=== PATIENT | male | born 1960 | race Caucasian/White ===

== ENCOUNTER 2018-01-03 13:51 | Inpatient (IN) | payer OTHER ==
[2018-01-03 16:15] VITALS: BMI 31.8
--- NOTE | 2018-01-03 17:04 | HP ---
"COWS - Scale Resting Pulse: 1= [place] 81-100 Sweatin=Flushed/Facial Moisture Restless Observation: 3= Extraneous Movement Pupil Size: 2= Moderately Dilated Bone or Joint Aches: 1= Mild Discomfort Runny Nose/ Eye Tearin= Nasal Congestion GI Upset > 30mins: 2= Nausea/Diarrhea Tremor Observation: 2= Slight Tremor Visible Yawning Observation: 0= None Anxiety or Irritability: 1=Feels Anxious/Irritable Goose Flesh Skin: 0=Smooth Skin COWS Score: 15 CIWA Score - CIWA Score Nausea/Vomitin-Mild Nausea/No Vomiting Muscle Tremors: 3 Anxiety: 3 Agitation: 1-Slight > Activity Paroxysmal Sweats: 1-Minimal Palms Moist Orientation: 0-Oriented Tacttile Disturbances: 0-None Auditory Disturbances: 0-None Visual Disturbances: 0-None Headache: 2-Mild CIWA-Ar Total Score: 11 Admission ROS BHS - HPI Chief Complaint: I'm starting to have alcohol and heroin withdrawal. Allergies/Adverse Reactions: Allergies Allergy/AdvReac Type Severity Reaction Status Date / Time No Known Allergies Allergy Verified 01/03/18 16:44 History of Present Illness: Here for detox from alcohol, heroin, and cocaine. Alcohol use began at age 31. Cocaine use began at age 21. Heroin use began at age 37. Methadone use began at age 37. Has been buying methadone off street. Last took 2-3 days ago. Previous detox and stayed sober for 2 years. I just relapsed in March 2017. Hx DM, HTN, Asthma Search Terms: Jung Sandip, 1960 Search Date: 01/03/2018 04:56:57 PM The Drug Utilization Report below displays all of the controlled substance prescriptions, if any, that your patient has filled in the last twelve months. The information displayed on this report is compiled from pharmacy submissions to the Department, and accurately reflects the information as submitted by the pharmacies. This report was requested by: Mary Prater | Reference #: [id number] There are no results for the search terms that you entered. Exam Limitations: No Limitations - Ebola screening Have you traveled outside of the country in the last 21 days: No (N) Have you had contact with anyone from an Ebola affected area: No Have you been sick,other than usual withdrawal symptoms: No Do you have a fever: No - Review of Systems Constitutional: Changes in sleep (Difficulty falling asleep. Uses alcohol to fall asleep.) EENT: reports: Blurred Vision (Uses reading glasses), Dental Problems (Occ tooth ache. Chews and swallows okay.) Respiratory: reports: Cough (Occ cough w/ phlegm), SOB with Exertion (W/ starirs ) Cardiac: reports: No Symptoms Reported, Other (HTN - missed meds today) GI: reports: Diarrhea, Nausea : reports: No Symptoms Reported, Other (Has dark urine.) Musculoskeletal: reports: Back Pain (r/t withdrawal) Integumentary: reports: No Symptoms Reported Neuro: reports: Headache (r/t withdrawal and possibly increased B/P) Endocrine: reports: No Symptoms Reported Hematology: reports: No Symptoms Reported Psychiatric: reports: Judgement Intact, Orientated x3, Agitated, Anxious, Depressed (Sadness r/t drug use. Denies thoughts of harming self or others.) Patient History - Patient Medical History Hx Asthma: Yes (Pt is on MDI. Last exacerbatation 1 month (wheezing)) Hx Chronic Obstructive Pulmonary Disease (COPD): No Hx Cancer: No Hx Cardiac Disorders: No Hx Congestive Heart Failure: No Hx Hypertension: Yes (non compliant with meds.) Hx Hypercholesterolemia: No Hx Pacemaker: No HX Cerebrovascular Accident: No Hx Seizures: No Hx Dementia: No Hx Diabetes: Yes (On medications) Hx Gastrointestinal Disorders: No Hx Liver Disease: No Hx Genitourinary Disorders: No Hx Sexually Transmitted Disorders: Yes (Pt has a hx of herpes.) Hx Renal Disease (ESRD): No Hx Thyroid Disease: No Hx Human Immunodeficiency Virus (HIV): No (2015) Hx Hepatitis C: No Hx Depression: Yes (Denies suicide/violent ideation) Hx Suicide Attempt: No Hx Schizophrenia: No - Patient Surgical History Past Surgical History: No - PPD History Previous Implant?: Yes Documented Results: Negative w/o proof Implanted On Prior [facility] Admission?: Yes PPD to be Administered?: Yes - Smoking Cessation Smoking history: Current every day smoker Have you smoked in the past 12 months: Yes Aproximately how many cigarettes per day: 10 Hx Chewing Tobacco Use: No Initiated information on smoking cessation: Yes 'Breaking Loose' booklet given: 01/03/18 - Substance & Tx. History Hx Alcohol Use: Yes Hx Substance Use: Yes Substance Use Type: Alcohol, Cocaine, Heroin, Opiates (Illicit methadone ) Hx Substance Use Treatment: Yes (detox, rehab, long-term, NA) - Substances Abused Heroin Route: Inhalation Frequency: Daily Amount used: 2 bags Age of first use: 37 Date of Last Use: 01/01/18 Cocaine Route: Smoking Frequency: Daily Amount used: $30-40 Age of first use: 21 Date of Last Use: 01/02/18 Alcohol Route: Oral Frequency: Daily Amount used: 2-3 20 oz four locos Age of first use: 31 Date of Last Use: 01/03/18 street methadone Route: Oral Frequency: 3-6 times per week Amount used: 20-30mg Age of first use: 36 Date of Last Use: 12/31/17 Admission Physical Exam S - Vital Signs Vital Signs: Vital Signs - 24 hr 01/03/18 16:12 Temperature 97.6 F Pulse Rate 81 Respiratory 20 Rate Blood Pressure 191/99 H - Physical General Appearance: Yes: Mild Distress, Tremorous, Sweating, Anxious HEENTM: Yes: EOMI, Hearing grossly Normal, Normocephalic, Normal Voice, NGUYỄN ( Pupils 4 mm), Nasal Congestion Respiratory: Yes: No Respiratory Distress, Wheezing ((R) upper inspiratory/ expiratory wheeze.), Other (Noisy cough - productive of thick grayish phlegm) Neck: Yes: No masses,lesions,Nodules, Supple Breast: Yes: Breast Exam Deferred Cardiology: Yes: Regular Rhythm, Regular Rate, S1, S2 Abdominal: Yes: Non Tender, Soft, Increased Bowel Sounds, Protuberent ( Increased abdominal adiposity) Genitourinary: Yes: Within Normal Limits Back: Yes: Normal Inspection Musculoskeletal: Yes: full range of Motion Extremities: Yes: Normal Capillary Refill, Normal Inspection, Normal Range of Motion, Non-Tender, Tremors (Mild tremors of hands) Neurological: Yes: antenna engineer II-XII NML intact, Fully Oriented, Alert, Motor Strength 5/5, Normal Mood/Affect, Normal Response Integumentary: Yes: Normal Color, Dry (Poor skin turgor.), Warm Lymphatic: Yes: Within Normal Limits - Diagnostic (1) Alcohol dependence with uncomplicated withdrawal Current Visit: Yes Status: Acute (2) Opioid dependence with withdrawal Current Visit: Yes Status: Acute (3) Cocaine dependence, uncomplicated Current Visit: Yes Status: Chronic (4) Diabetes Current Visit: Yes Status: Chronic Qualifiers: Diabetes mellitus type: type 2 Diabetes mellitus penitentiary insulin use: without intermediate accountant use Diabetes mellitus complication status: with unspecified complications Qualified Code(s): E11.8 - Type 2 diabetes mellitus with unspecified complications (5) Essential (primary) hypertension Current Visit: Yes Status: Chronic (6) Obesity (BMI 30-39.9) Current Visit: Yes Status: Chronic (7) Asthma Current Visit: Yes Status: Acute Qualifiers: Asthma severity: mild Asthma persistence: intermittent Asthma complication type: with acute exacerbation Qualified Code(s): J45.21 - Mild intermittent asthma with (acute) exacerbation Cleared for Admission BHS - Detox or Rehab S Level of Care: Medically Managed Detox Regimen/Protocol: Methadone/Librium BHS Breath Alcohol Content Breath Alcohol Content: 0 Urine Drug Screen - Results Drug Screen Negative: No Urine Drug Screen Results: THERESE-Cocaine, MTD-Methadone"
[2018-01-03] MEDS ORDERED: MAG HYDROX/AL HYDROX/SIMETH 30 ML UNIT-DOSE CUP PO PRN (17:30)
[2018-01-03] MEDS ORDERED: MAGNESIUM CITRATE 300 ML BOTTLE PO PRN (17:30)
[2018-01-03] MEDS ORDERED: MENTHOL/PHENOL 1 EACH UD MM PRN (17:30)
[2018-01-03] MEDS ORDERED: NICOTINE POLACRILEX 2 MG GUM BC PRN (17:30)
[2018-01-03] MEDS ORDERED: MAGNESIUM HYDROX 2400MG/30ML ORAL SUSPENSION 30 ML CUP PO PRN (17:30)
[2018-01-03] MEDS ORDERED: chlordiazePOXIDE HCL 25 MG CAPSULE PO PRN (17:30)
[2018-01-03] MEDS ORDERED: ACETAMINOPHEN 325 MG TABLET (FP) PO PRN (17:30)
[2018-01-03] MEDS ORDERED: LOPERAMIDE HCL 2 MG CAPSULE PO PRN (17:30)
[2018-01-03] MEDS ORDERED: ALBUTEROL SO4 0.083% IH SOL 2.5 MG/3 ML VIAL.NEB. NEB PRN (17:37)
[2018-01-03] MEDS ORDERED: chlordiazePOXIDE HCL 25 MG CAPSULE PO ONE (18:15)
[2018-01-03] MEDS ORDERED: METHADONE HCL 10 MG TABLET (FOR DETOX USE ONLY) PO ONE ×2 (18:15→23:00)
[2018-01-03] MEDS ORDERED: cloNIDine HCL 0.1 MG TABLET PO ONE (18:15)
[2018-01-03] MEDS: metFORMIN HCL 500 MG TABLET (FP) PO SCH (18:59)
[2018-01-03] MEDS: THIAMINE HCL 100 MG TABLET (FP) PO SCH (22:05)
[2018-01-03] MEDS: chlordiazePOXIDE HCL 25 MG CAPSULE PO SCH (22:06)
[2018-01-03] MEDS: guaiFENesin 600 MG TABLET.ER (FP) PO SCH (23:08)
[2018-01-04] MEDS: chlordiazePOXIDE HCL 25 MG CAPSULE PO SCH ×4 (05:46→22:20)
[2018-01-04] MEDS: metFORMIN HCL 500 MG TABLET (FP) PO SCH ×2 (06:13→17:50)
[2018-01-04] MEDS ORDERED: METHADONE HCL 10 MG TABLET (FOR DETOX USE ONLY) PO SCH (10:00)
[2018-01-04] MEDS ORDERED: ENALAPRIL MALEATE 10 MG TABLET (FP) PO SCH (10:00)
[2018-01-04] MEDS: guaiFENesin 600 MG TABLET.ER (FP) PO SCH ×2 (10:10→22:20)
[2018-01-04] MEDS: PRENATAL VITAMINS W/ FOLIC ACID TABLET (FP) PO SCH (10:10)
[2018-01-04] MEDS: NICOTINE 21 MG/24 HOURS TOPICAL PATCH TD SCH (10:11)
[2018-01-04 10:51] LABS: HEMATOCRIT 43.6 % (35.4-49); MCH 30.2 pg (25.7-33.7); MEAN CELL VOLUME 94.4 fl (80-96); MEAN PLT VOLUME 7.1 fl (7.5-11.1); PLATELET COUNT 255 K/MM3 (134-434); RBC 4.62 M/mm3 (4.00-5.60); RDW 14.5 % (11.9-15.9); WHITE BLOOD COUNT 6.7 K/mm3 (4.0-10.0)
[2018-01-04 11:04] LABS: ALBUMIN 3.2 g/dl (3.4-5.0); ALK PHOS 63 U/L (45-117); ANION GAP 7 MMOL/L (8-16); BILIRUBIN,TOTAL 0.5 mg/dL (0.2-1); BLOOD UREA NITROGEN 17 mg/dL (7-18); CALCIUM 8.4 mg/dL (8.5-10.1); CHLORIDE 103 mmol/L (98-107); CO2 29 mmol/L (21-32); CREATININE 0.8 mg/dL (0.55-1.3); GLUCOSE,RANDOM 91 mg/dL (74-106); POTASSIUM 3.8 mmol/L (3.5-5.1); SGOT/AST 30 U/L (15-37); SGPT/ALT 38 U/L (13-61); SODIUM 140 mmol/L (136-145); TOT PROT 6.2 g/dl (6.4-8.2)
--- NOTE | 2018-01-04 13:18 | PN ---
[facility] CIWA - CIWA Score Nausea/Vomitin Muscle Tremors: 4-Moderate,w/Arms Extend Anxiety: 4-Mod. Anxious/Guarded Agitation: 4-Moderately Restless Paroxysmal Sweats: 3 Orientation: 0-Oriented Tacttile Disturbances: 1-Very Mild Itch/Numbness Auditory Disturbances: 0-None Visual Disturbances: 0-None Headache: 0-None Present CIWA-Ar Total Score: 18 S COWS - Scale Resting Pulse: 0= [place] 80 or Below Sweatin= Chills/Flushing Restless Observation: 3= Extraneous Movement Pupil Size: 1= Pupils >than Normal Bone or Joint Aches: 2= Severe Diffuse Aches Runny Nose/ Eye Tearin= Runny Nose/Eyes GI Upset > 30mins: 2= Nausea/Diarrhea Tremor Observation of Outstretched Hands: 2= Slight Tremor Visible Yawning Observation: 1= 1-2x During Session Anxiety or Irritability: 2=Irritable/Anxious Goose Flesh Skin: 0=Smooth Skin COWS Score: 16 S Progress Note (SOAP) Subjective: Back pain, interrupted sleep Objective: 01/04/18 13:14 Last Vital Signs Temp Pulse Resp BP Pulse Ox 97.6 F 67 20 162/90 01/04/18 10:55 01/04/18 10:55 01/04/18 10:55 01/04/18 10:55 Has HTN, on meds Laboratory Tests 01/04/18 01/04/18 01/04/18 05:45 07:00 07:00 WBC 6.7 RBC 4.62 Hgb 14.0 Hct 43.6 MCV 94.4 MCH 30.2 MCHC 32.0 RDW 14.5 Plt Count 255 MPV 7.1 L Sodium 140 Potassium 3.8 Chloride 103 Carbon Dioxide 29 Anion Gap 7 L BUN 17 Creatinine 0.8 Creat Clearance w eGFR > 60 POC Glucometer 93 Random Glucose 91 Calcium 8.4 L Total Bilirubin 0.5 AST 30 ALT 38 Alkaline Phosphatase 63 Total Protein 6.2 L Albumin 3.2 L Labs reviewed Assessment: 01/04/18 13:18 Withdrawal symptoms Noted with uncontrolled HTN Plan: Continue detox Encouraged PO water intake HTN, uncontrolled: increase enalapril to 30mg PO daily, 10mg enalapril now
[2018-01-04] MEDS: ENALAPRIL MALEATE 10 MG TABLET (FP) PO SCH (13:58)
[2018-01-04 16:27] LABS: URINE APPEARANCE CLEAR; URINE BILIRUBIN NEGATIVE (<2.0 mg/dL); URINE COLOR DKYELLOW; URINE GLUCOSE (UA) NEGATIVE (NEGATIVE); URINE KETONE NEGATIVE (NEGATIVE); URINE LEUK ESTERASE NEGATIVE (NEGATIVE); URINE NITRITE NEGATIVE (NEGATIVE); URINE PROTEIN 2+ (NEGATIVE)
--- NOTE | 2018-01-04 17:09 | CONSULT ---
[facility] Psychiatric Consult - Data Date of interview: 01/04/18 Admission source: [facility] Identifying data: First admission to [facility] for this 57 y/o male seeking detoxification treatment on for heroin,alcohol,cocaine dependence.Patient is single,a father of one,homeless (longterm resident) and currently employed. Substance Abuse History: Discussed with the patient in this interview. Mr Oropeza admits a long standing history of alcohol,methadone (bought in the streets),cocaine and heroin abuse. Details in current [facility] report as follows : Smoking history: Current every day smoker. Have you smoked in the past 12 months: Yes. Aproximately how many cigarettes per day: 10. Hx Chewing Tobacco Use: No. Initiated information on smoking cessation: Yes. 'Breaking Loose' booklet given: 01/03/18. - Substance & Tx. History. Hx Alcohol Use: Yes. Hx Substance Use: Yes. Substance Use Type: Alcohol, Cocaine, Heroin, Opiates ( Illicit methadone ). Hx Substance Use Treatment: Yes (detox, rehab, long-term, NA). - Substances Abused. Heroin. Route: Inhalation. Frequency: Daily. Amount used: 2 bags. Age of first use: 37. Date of Last Use: 01/01/18. Cocaine. Route: Smoking. Frequency: Daily. Amount used: $30-40. Age of first use: 21. Date of Last Use: 01/02/18. Alcohol. Route: Oral. Frequency: Daily. Amount used: 2-3 20 oz four locos. Age of first use: 31. Date of Last Use: 01/03/18. street methadone. Route: Oral. Frequency: 3-6 times per week. Amount used: 20-30mg. Age of first use: 36. Date of Last Use : 12/31/17 Medical History: Diabetes mellitus,hypertension,bronchial asthma and a history of herpes genitalis. Psychiatric History: Vague and indifferent historian.Patient indicates that he got diagnosed in the past with MDD and that he " used to be " on lyrica. Remote and brief history of psychiatric OPD care (no precise information). Mr Oropeza states that he " has not seen a psychiatrist for a while ", which translates into months of no treatment.Patient denies history of suicide attempts. Declines option of psychotropic medications other than trazodone for insomnia + drugs designated for detoxification . Physical/Sexual Abuse/Trauma History: Patient denies. Additional Comment: Urine Drug Screen Results: THERESE-Cocaine, MTD-Methadone.Noted. Mental Status Exam - Mental Status Exam Alert and Oriented to: Time, Place, Person Cognitive Function: Good Patient Appearance: Well Groomed Mood: Hopeful, Euthymic Affect: Appropriate, Normal Range Patient Behavior: Cooperative Speech Pattern: Clear, Appropriate Voice Loudness: Normal Thought Process: Goal Oriented Thought Disorder: Not Present Hallucinations: Denies Suicidal Ideation: Denies Homicidal Ideation: Denies Insight/Judgement: Poor Sleep: Poorly, Difficulty falling asleep Appetite: Good Muscle strength/Tone: Normal Gait/Station: Normal Psychiatric Findings - Problem List ([place] 1, 2,3) (1) Alcohol dependence with uncomplicated withdrawal Current Visit: Yes Status: Acute (2) Opioid dependence with withdrawal Current Visit: Yes Status: Acute (3) Cocaine dependence, uncomplicated Current Visit: Yes Status: Chronic (4) Nicotine dependence Current Visit: Yes Status: Acute (5) Insomnia Current Visit: Yes Status: Acute - Initial Treatment Plan Initial Treatment Plan: Psychoeducation.Sleep hygiene.Detoxification in progress. Trazodone 50 mg po hs (patient's specific request). Mr Oropeza is made aware of the risk of priapism.Agrees to this careplan.
[2018-01-04 17:13] LABS: URINE MUCUS RARE
[2018-01-04] MEDS: IBUPROFEN 400 MG TABLET (FP) PO PRN (17:51)
[2018-01-04] MEDS: THIAMINE HCL 100 MG TABLET (FP) PO SCH (22:20)
[2018-01-04] MEDS: MELATONIN 5 MG TABLETS PO PRN (22:21)
[2018-01-04] MEDS: traZODone HCL 50 MG TABLET (FP) PO SCH (22:21)
[2018-01-05] MEDS: chlordiazePOXIDE HCL 25 MG CAPSULE PO SCH ×3 (05:43→17:07)
[2018-01-05] MEDS: metFORMIN HCL 500 MG TABLET (FP) PO SCH ×2 (06:20→17:08)
[2018-01-05] MEDS: ENALAPRIL MALEATE 10 MG TABLET (FP) PO SCH ×2 (10:38→15:44)
[2018-01-05] MEDS: PRENATAL VITAMINS W/ FOLIC ACID TABLET (FP) PO SCH (10:38)
[2018-01-05] MEDS: METHADONE HCL 5 MG TABLET (FOR DETOX USE ONLY) PO SCH (10:39)
[2018-01-05] MEDS: guaiFENesin 600 MG TABLET.ER (FP) PO SCH ×2 (10:39→22:25)
[2018-01-05] MEDS: NICOTINE 21 MG/24 HOURS TOPICAL PATCH TD SCH (10:40)
--- NOTE | 2018-01-05 13:00 | PN ---
S CIWA - CIWA Score Nausea/Vomitin Muscle Tremors: 3 Anxiety: 4-Mod. Anxious/Guarded Agitation: 3 Paroxysmal Sweats: 2 Orientation: 0-Oriented Tacttile Disturbances: 0-None Auditory Disturbances: 0-None Visual Disturbances: 0-None Headache: 0-None Present CIWA-Ar Total Score: 14 BHS COWS - Scale Resting Pulse: 0= [place] 80 or Below Sweatin= Chills/Flushing Restless Observation: 3= Extraneous Movement Pupil Size: 0= Normal to Room Light Bone or Joint Aches: 2= Severe Diffuse Aches Runny Nose/ Eye Tearin= Runny Nose/Eyes GI Upset > 30mins: 2= Nausea/Diarrhea Tremor Observation of Outstretched Hands: 2= Slight Tremor Visible Yawning Observation: 0= None Anxiety or Irritability: 2=Irritable/Anxious Goose Flesh Skin: 0=Smooth Skin COWS Score: 14 S Progress Note (SOAP) Subjective: Sweating, hands hurting, interrupted sleep Objective: 01/05/18 12:58 Last Vital Signs Temp Pulse Resp BP Pulse Ox 98.2 F 67 18 124/74 01/05/18 10:31 01/05/18 10:31 01/05/18 10:31 01/05/18 10:31 Laboratory Tests 01/04/18 01/04/18 01/04/18 05:45 07:00 07:00 WBC 6.7 RBC 4.62 Hgb 14.0 Hct 43.6 MCV 94.4 MCH 30.2 MCHC 32.0 RDW 14.5 Plt Count 255 MPV 7.1 L Sodium 140 Potassium 3.8 Chloride 103 Carbon Dioxide 29 Anion Gap 7 L BUN 17 Creatinine 0.8 Creat Clearance w eGFR > 60 POC Glucometer 93 Random Glucose 91 Calcium 8.4 L Total Bilirubin 0.5 AST 30 ALT 38 Alkaline Phosphatase 63 Total Protein 6.2 L Albumin 3.2 L Urine Color Urine Appearance Urine pH Ur Specific [place] Urine Protein Urine Glucose (UA) Urine Ketones Urine Blood Urine Nitrite Urine Bilirubin Urine Urobilinogen Ur Leukocyte Esterase Urine WBC (Auto) Urine RBC (Auto) Urine Mucus RPR Titer 01/04/18 01/04/18 01/04/18 07:00 10:03 16:28 WBC RBC Hgb Hct MCV MCH MCHC RDW Plt Count MPV Sodium Potassium Chloride Carbon Dioxide Anion Gap BUN Creatinine Creat Clearance w eGFR POC Glucometer 132 Random Glucose Calcium Total Bilirubin AST ALT Alkaline Phosphatase Total Protein Albumin Urine Color Dkyellow Urine Appearance Clear Urine pH 6.0 Ur Specific [place] 1.025 Urine Protein 2+ H Urine Glucose (UA) Negative Urine Ketones Negative Urine Blood 1+ H Urine Nitrite Negative Urine Bilirubin Negative Urine Urobilinogen 2.0 Ur Leukocyte Esterase Negative Urine WBC (Auto) 2 Urine RBC (Auto) 30 Urine Mucus Rare RPR Titer Nonreactive 01/04/18 01/05/18 01/05/18 20:48 05:42 12:41 WBC RBC Hgb Hct MCV MCH MCHC RDW Plt Count MPV Sodium Potassium Chloride Carbon Dioxide Anion Gap BUN Creatinine Creat Clearance w eGFR POC Glucometer 112 113 141 Random Glucose Calcium Total Bilirubin AST ALT Alkaline Phosphatase Total Protein Albumin Urine Color Urine Appearance Urine pH Ur Specific [place] Urine Protein Urine Glucose (UA) Urine Ketones Urine Blood Urine Nitrite Urine Bilirubin Urine Urobilinogen Ur Leukocyte Esterase Urine WBC (Auto) Urine RBC (Auto) Urine Mucus RPR Titer Labs reviewed: abnormal UA Assessment: 01/05/18 12:59 Withdrawal symptoms Noted with abnormal UA Plan: Continue detox Abnormal UA: encouraged PO water intake, repeat UA
--- NOTE | 2018-01-05 20:07 | PN ---
S Progress Note Note: Vital Signs Temperature 96.6 F L 01/05/18 17:01 Pulse Rate 75 01/05/18 17:01 Respiratory Rate 18 01/05/18 17:01 Blood Pressure 130/85 01/05/18 17:01 O2 Sat by Pulse Oximetry (%) Patient decline BGM ACHS. As per patient he does not check BGM at home that frequently. BGM during current stay stable. patient currently on metformin PO BID. BGM monitoring changed BIDAC. continue to monitor
[2018-01-05] MEDS: MELATONIN 5 MG TABLETS PO PRN (22:25)
[2018-01-05] MEDS: THIAMINE HCL 100 MG TABLET (FP) PO SCH (22:25)
[2018-01-05] MEDS: traZODone HCL 50 MG TABLET (FP) PO SCH (22:25)
[2018-01-05] MEDS: chlordiazePOXIDE 5 MG CAPSULE PO SCH (22:25)
[2018-01-05] MEDS ORDERED: TRIMETHOBENZAMIDE HCL 200MG/2ML INJ IM ONE ×2 (23:45)
--- NOTE | 2018-01-05 23:56 | PN ---
S Progress Note Note: Patient vomited x 2 Vital Signs Temperature 96 F L 01/05/18 21:30 Pulse Rate 83 01/05/18 21:30 Respiratory Rate 16 01/05/18 21:30 Blood Pressure 131/87 01/05/18 21:30 O2 Sat by Pulse Oximetry (%) Action: Tigan 200mg intramuscular ordered
[2018-01-06] MEDS ORDERED: TRIMETHOBENZAMIDE HCL 200MG/2ML INJ IM ONE ×3 (04:30→05:15)
[2018-01-06] MEDS: cloNIDine HCL 0.1 MG TABLET PO PRN (05:47)
[2018-01-06] MEDS: chlordiazePOXIDE 5 MG CAPSULE PO SCH ×3 (05:53→17:21)
[2018-01-06] MEDS: metFORMIN HCL 500 MG TABLET (FP) PO SCH ×2 (06:20→17:21)
[2018-01-06] MEDS: ENALAPRIL MALEATE 10 MG TABLET (FP) PO SCH ×2 (08:55→10:08)
[2018-01-06] MEDS: METHADONE HCL 5 MG TABLET (FOR DETOX USE ONLY) PO SCH (09:26)
[2018-01-06] MEDS ORDERED: cloNIDine HCL 0.1 MG TABLET PO ONE (09:59)
[2018-01-06] MEDS: NICOTINE 21 MG/24 HOURS TOPICAL PATCH TD SCH (10:12)
[2018-01-06] MEDS: PRENATAL VITAMINS W/ FOLIC ACID TABLET (FP) PO SCH (10:12)
[2018-01-06] MEDS: guaiFENesin 600 MG TABLET.ER (FP) PO SCH (10:57)
[2018-01-06] MEDS: TRIMETHOBENZAMIDE HCL 200MG/2ML INJ IM PRN (10:57)
--- NOTE | 2018-01-06 14:22 | PN ---
BHS Progress Note (SOAP) Subjective: Stomach ache, vomiting, diarrhea, interrupted sleep, back pain Objective: 01/06/18 14:18 Last Vital Signs Temp Pulse Resp BP Pulse Ox 97.4 F L 83 16 224/127 H 01/06/18 09:41 01/06/18 09:41 01/06/18 09:41 01/06/18 09:41 Repeated b/p: 197/95, received clonidine 0.1mg PO x 1 dose; latest b/p of 121/80 Laboratory Tests 01/04/18 01/04/18 01/04/18 05:45 07:00 07:00 WBC 6.7 RBC 4.62 Hgb 14.0 Hct 43.6 MCV 94.4 MCH 30.2 MCHC 32.0 RDW 14.5 Plt Count 255 MPV 7.1 L Sodium 140 Potassium 3.8 Chloride 103 Carbon Dioxide 29 Anion Gap 7 L BUN 17 Creatinine 0.8 Creat Clearance w eGFR > 60 POC Glucometer 93 Random Glucose 91 Calcium 8.4 L Total Bilirubin 0.5 AST 30 ALT 38 Alkaline Phosphatase 63 Total Protein 6.2 L Albumin 3.2 L Urine Color Urine Appearance Urine pH Ur Specific [place] Urine Protein Urine Glucose (UA) Urine Ketones Urine Blood Urine Nitrite Urine Bilirubin Urine Urobilinogen Ur Leukocyte Esterase Urine WBC (Auto) Urine RBC (Auto) Urine Mucus RPR Titer 01/04/18 01/04/18 01/04/18 07:00 10:03 16:28 WBC RBC Hgb Hct MCV MCH MCHC RDW Plt Count MPV Sodium Potassium Chloride Carbon Dioxide Anion Gap BUN Creatinine Creat Clearance w eGFR POC Glucometer 132 Random Glucose Calcium Total Bilirubin AST ALT Alkaline Phosphatase Total Protein Albumin Urine Color Dkyellow Urine Appearance Clear Urine pH 6.0 Ur Specific [place] 1.025 Urine Protein 2+ H Urine Glucose (UA) Negative Urine Ketones Negative Urine Blood 1+ H Urine Nitrite Negative Urine Bilirubin Negative Urine Urobilinogen 2.0 Ur Leukocyte Esterase Negative Urine WBC (Auto) 2 Urine RBC (Auto) 30 Urine Mucus Rare RPR Titer Nonreactive 01/04/18 01/05/18 01/05/18 20:48 05:42 12:41 WBC RBC Hgb Hct MCV MCH MCHC RDW Plt Count MPV Sodium Potassium Chloride Carbon Dioxide Anion Gap BUN Creatinine Creat Clearance w eGFR POC Glucometer 112 113 141 Random Glucose Calcium Total Bilirubin AST ALT Alkaline Phosphatase Total Protein Albumin Urine Color Urine Appearance Urine pH Ur Specific [place] Urine Protein Urine Glucose (UA) Urine Ketones Urine Blood Urine Nitrite Urine Bilirubin Urine Urobilinogen Ur Leukocyte Esterase Urine WBC (Auto) Urine RBC (Auto) Urine Mucus RPR Titer 01/05/18 01/06/18 16:26 05:52 WBC RBC Hgb Hct MCV MCH MCHC RDW Plt Count MPV Sodium Potassium Chloride Carbon Dioxide Anion Gap BUN Creatinine Creat Clearance w eGFR POC Glucometer 113 168 Random Glucose Calcium Total Bilirubin AST ALT Alkaline Phosphatase Total Protein Albumin Urine Color Urine Appearance Urine pH Ur Specific [place] Urine Protein Urine Glucose (UA) Urine Ketones Urine Blood Urine Nitrite Urine Bilirubin Urine Urobilinogen Ur Leukocyte Esterase Urine WBC (Auto) Urine RBC (Auto) Urine Mucus RPR Titer Labs reviewed Assessment: 01/06/18 14:22 Withdrawal symptoms Plan: Continue detox Encouraged PO water intake
[2018-01-06] MEDS: IBUPROFEN 400 MG TABLET (FP) PO PRN (17:23)
[2018-01-06] MEDS: THIAMINE HCL 100 MG TABLET (FP) PO SCH (22:13)
[2018-01-06] MEDS: chlordiazePOXIDE HCL 10 MG CAPSULE PO SCH (22:14)
[2018-01-06] MEDS: traZODone HCL 50 MG TABLET (FP) PO SCH (22:14)
[2018-01-06] MEDS: MELATONIN 5 MG TABLETS PO PRN (22:15)
[2018-01-07] MEDS: chlordiazePOXIDE HCL 10 MG CAPSULE PO SCH ×3 (06:18→17:48)
[2018-01-07] MEDS: metFORMIN HCL 500 MG TABLET (FP) PO SCH ×2 (06:23→16:47)
[2018-01-07] MEDS: TRIMETHOBENZAMIDE HCL 200MG/2ML INJ IM PRN (09:51)
[2018-01-07] MEDS ORDERED: METHADONE HCL 10 MG TABLET (FOR DETOX USE ONLY) PO SCH (10:00)
[2018-01-07] MEDS ORDERED: METHADONE DETOX 10 MG/1 ML [20ML VIAL] IM ONE (10:30)
[2018-01-07] MEDS: cloNIDine HCL 0.1 MG TABLET PO PRN (11:35)
[2018-01-07] MEDS: ENALAPRIL MALEATE 10 MG TABLET (FP) PO SCH (11:35)
[2018-01-07] MEDS: PRENATAL VITAMINS W/ FOLIC ACID TABLET (FP) PO SCH (11:36)
[2018-01-07] MEDS: NICOTINE 21 MG/24 HOURS TOPICAL PATCH TD SCH (11:36)
--- NOTE | 2018-01-07 13:42 | PN ---
[facility] Progress Note Note: PATIENT CONTINUES WITH DETOX REGIMEN. PATIENT C/O NAUSEA AND VOMITED MULTIPLE TIMES THIS MORNING. C/O LEFT MUSCULAR CHEST WALL DISCOMFORT DURING INSPIRATION WHILE VOMITING. DENIES CHEST PAIN, SOB, LEFT ARM NUMBNESS/TINGLING AND NECK/JAW PAIN. Laboratory Tests 01/04/18 01/04/18 01/04/18 05:45 07:00 07:00 WBC 6.7 RBC 4.62 Hgb 14.0 Hct 43.6 MCV 94.4 MCH 30.2 MCHC 32.0 RDW 14.5 Plt Count 255 MPV 7.1 L Sodium 140 Potassium 3.8 Chloride 103 Carbon Dioxide 29 Anion Gap 7 L BUN 17 Creatinine 0.8 Creat Clearance w eGFR > 60 POC Glucometer 93 Random Glucose 91 Calcium 8.4 L Total Bilirubin 0.5 AST 30 ALT 38 Alkaline Phosphatase 63 Total Protein 6.2 L Albumin 3.2 L Urine Color Urine Appearance Urine pH Ur Specific [place] Urine Protein Urine Glucose (UA) Urine Ketones Urine Blood Urine Nitrite Urine Bilirubin Urine Urobilinogen Ur Leukocyte Esterase Urine WBC (Auto) Urine RBC (Auto) Urine Mucus RPR Titer 01/04/18 01/04/18 01/04/18 07:00 10:03 16:28 WBC RBC Hgb Hct MCV MCH MCHC RDW Plt Count MPV Sodium Potassium Chloride Carbon Dioxide Anion Gap BUN Creatinine Creat Clearance w eGFR POC Glucometer 132 Random Glucose Calcium Total Bilirubin AST ALT Alkaline Phosphatase Total Protein Albumin Urine Color Dkyellow Urine Appearance Clear Urine pH 6.0 Ur Specific [place] 1.025 Urine Protein 2+ H Urine Glucose (UA) Negative Urine Ketones Negative Urine Blood 1+ H Urine Nitrite Negative Urine Bilirubin Negative Urine Urobilinogen 2.0 Ur Leukocyte Esterase Negative Urine WBC (Auto) 2 Urine RBC (Auto) 30 Urine Mucus Rare RPR Titer Nonreactive 01/04/18 01/05/18 01/05/18 20:48 05:42 12:41 WBC RBC Hgb Hct MCV MCH MCHC RDW Plt Count MPV Sodium Potassium Chloride Carbon Dioxide Anion Gap BUN Creatinine Creat Clearance w eGFR POC Glucometer 112 113 141 Random Glucose Calcium Total Bilirubin AST ALT Alkaline Phosphatase Total Protein Albumin Urine Color Urine Appearance Urine pH Ur Specific [place] Urine Protein Urine Glucose (UA) Urine Ketones Urine Blood Urine Nitrite Urine Bilirubin Urine Urobilinogen Ur Leukocyte Esterase Urine WBC (Auto) Urine RBC (Auto) Urine Mucus RPR Titer 01/05/18 01/06/18 01/06/18 16:26 05:52 16:32 WBC RBC Hgb Hct MCV MCH MCHC RDW Plt Count MPV Sodium Potassium Chloride Carbon Dioxide Anion Gap BUN Creatinine Creat Clearance w eGFR POC Glucometer 113 168 128 Random Glucose Calcium Total Bilirubin AST ALT Alkaline Phosphatase Total Protein Albumin Urine Color Urine Appearance Urine pH Ur Specific [place] Urine Protein Urine Glucose (UA) Urine Ketones Urine Blood Urine Nitrite Urine Bilirubin Urine Urobilinogen Ur Leukocyte Esterase Urine WBC (Auto) Urine RBC (Auto) Urine Mucus RPR Titer 01/07/18 06:15 WBC RBC Hgb Hct MCV MCH MCHC RDW Plt Count MPV Sodium Potassium Chloride Carbon Dioxide Anion Gap BUN Creatinine Creat Clearance w eGFR POC Glucometer 142 Random Glucose Calcium Total Bilirubin AST ALT Alkaline Phosphatase Total Protein Albumin Urine Color Urine Appearance Urine pH Ur Specific [place] Urine Protein Urine Glucose (UA) Urine Ketones Urine Blood Urine Nitrite Urine Bilirubin Urine Urobilinogen Ur Leukocyte Esterase Urine WBC (Auto) Urine RBC (Auto) Urine Mucus RPR Titer Vital Signs Temperature 98 F 01/07/18 10:37 Pulse Rate 71 01/07/18 10:37 Respiratory Rate 18 01/07/18 10:37 Blood Pressure 211/106 H 01/07/18 10:37 O2 Sat by Pulse Oximetry (%) SKIN WARM AND MOIST, +FLUSHING CAR S1S2 RESP CTA BL GI SOFT, BS+, NT, +VOMITING EXT FULL ROM, AMB AD MARTÍN ALERT AND ORIENTED X 3 N/V WITHDRAWAL SX ELEVATED BP (REFLECTS BEFORE ANTIHTN MEDS GIVEN AND DURING EPISODE OF N/V TIGAN IM GIVEN ORDERED METHADONE 10MG ORAL CHANGED TO 5MG IM X ONE TODAY ANTIHTN MEDS GIVEN CONTINUE TO MONITOR CLINICALLY WILL REPEAT BP IN 1/2 HOURS TO ASSESS MEDICATION EFFECT
[2018-01-07] MEDS ORDERED: cloNIDine HCL 0.1 MG TABLET PO ONE (14:52)
[2018-01-07 17:55] LABS: URINE APPEARANCE CLEAR; URINE BILIRUBIN NEGATIVE (<2.0 mg/dL); URINE COLOR LTYELLOW; URINE GLUCOSE (UA) NEGATIVE (NEGATIVE); URINE KETONE NEGATIVE (NEGATIVE); URINE LEUK ESTERASE NEGATIVE (NEGATIVE); URINE NITRITE NEGATIVE (NEGATIVE); URINE PROTEIN NEGATIVE (NEGATIVE); URINE UROBILINOGEN NEGATIVE mg/dL (0.2-1.0)
[2018-01-07 18:02] LABS: URINE HYALINE CAST 1 /lpf
[2018-01-07] MEDS: traZODone HCL 50 MG TABLET (FP) PO SCH (22:40)
[2018-01-07] MEDS: THIAMINE HCL 100 MG TABLET (FP) PO SCH (22:40)
[2018-01-08] MEDS ORDERED: METHADONE HCL 5 MG TABLET (FOR DETOX USE ONLY) PO SCH (06:00)
[2018-01-08] MEDS: metFORMIN HCL 500 MG TABLET (FP) PO SCH (08:24)
[2018-01-08 09:22] VITALS: BP 106/71; PULSE 74; TEMP 97
--- NOTE | 2018-01-08 12:10 | DS ---
[facility] Detox Discharge Summary Admission Date: 01/03/18 Discharge Date: 01/08/18 - History Present History: Alcohol Dependence, Cocaine Dependence, Opioid Dependence Pertinent Past History: DMT2 HTN Obesity Asthma - Physical Exam Results Vital Signs: Vital Signs Temperature 97.0 F L 01/08/18 09:21 Pulse Rate 74 01/08/18 09:21 Respiratory Rate 18 01/08/18 09:21 Blood Pressure 106/71 01/08/18 09:21 O2 Sat by Pulse Oximetry (%) Pertinent Admission Physical Exam Findings: Withdrawal symptoms Laboratory Tests 01/04/18 01/04/18 01/04/18 05:45 07:00 07:00 WBC 6.7 RBC 4.62 Hgb 14.0 Hct 43.6 MCV 94.4 MCH 30.2 MCHC 32.0 RDW 14.5 Plt Count 255 MPV 7.1 L Sodium 140 Potassium 3.8 Chloride 103 Carbon Dioxide 29 Anion Gap 7 L BUN 17 Creatinine 0.8 Creat Clearance w eGFR > 60 POC Glucometer 93 Random Glucose 91 Calcium 8.4 L Total Bilirubin 0.5 AST 30 ALT 38 Alkaline Phosphatase 63 Total Protein 6.2 L Albumin 3.2 L Urine Color Urine Appearance Urine pH Ur Specific [place] Urine Protein Urine Glucose (UA) Urine Ketones Urine Blood Urine Nitrite Urine Bilirubin Urine Urobilinogen Ur Leukocyte Esterase Urine WBC (Auto) Urine RBC (Auto) Hyaline Casts Urine Mucus RPR Titer 01/04/18 01/04/18 01/04/18 07:00 10:03 16:28 WBC RBC Hgb Hct MCV MCH MCHC RDW Plt Count MPV Sodium Potassium Chloride Carbon Dioxide Anion Gap BUN Creatinine Creat Clearance w eGFR POC Glucometer 132 Random Glucose Calcium Total Bilirubin AST ALT Alkaline Phosphatase Total Protein Albumin Urine Color Dkyellow Urine Appearance Clear Urine pH 6.0 Ur Specific [place] 1.025 Urine Protein 2+ H Urine Glucose (UA) Negative Urine Ketones Negative Urine Blood 1+ H Urine Nitrite Negative Urine Bilirubin Negative Urine Urobilinogen 2.0 Ur Leukocyte Esterase Negative Urine WBC (Auto) 2 Urine RBC (Auto) 30 Hyaline Casts Urine Mucus Rare RPR Titer Nonreactive 01/04/18 01/05/18 01/05/18 20:48 05:42 12:41 WBC RBC Hgb Hct MCV MCH MCHC RDW Plt Count MPV Sodium Potassium Chloride Carbon Dioxide Anion Gap BUN Creatinine Creat Clearance w eGFR POC Glucometer 112 113 141 Random Glucose Calcium Total Bilirubin AST ALT Alkaline Phosphatase Total Protein Albumin Urine Color Urine Appearance Urine pH Ur Specific [place] Urine Protein Urine Glucose (UA) Urine Ketones Urine Blood Urine Nitrite Urine Bilirubin Urine Urobilinogen Ur Leukocyte Esterase Urine WBC (Auto) Urine RBC (Auto) Hyaline Casts Urine Mucus RPR Titer 01/05/18 01/06/18 01/06/18 16:26 05:52 16:32 WBC RBC Hgb Hct MCV MCH MCHC RDW Plt Count MPV Sodium Potassium Chloride Carbon Dioxide Anion Gap BUN Creatinine Creat Clearance w eGFR POC Glucometer 113 168 128 Random Glucose Calcium Total Bilirubin AST ALT Alkaline Phosphatase Total Protein Albumin Urine Color Urine Appearance Urine pH Ur Specific [place] Urine Protein Urine Glucose (UA) Urine Ketones Urine Blood Urine Nitrite Urine Bilirubin Urine Urobilinogen Ur Leukocyte Esterase Urine WBC (Auto) Urine RBC (Auto) Hyaline Casts Urine Mucus RPR Titer 01/07/18 01/07/18 01/07/18 06:15 09:16 16:44 WBC RBC Hgb Hct MCV MCH MCHC RDW Plt Count MPV Sodium Potassium Chloride Carbon Dioxide Anion Gap BUN Creatinine Creat Clearance w eGFR POC Glucometer 142 139 Random Glucose Calcium Total Bilirubin AST ALT Alkaline Phosphatase Total Protein Albumin Urine Color Ltyellow Urine Appearance Clear Urine pH 7.0 Ur Specific [place] 1.015 Urine Protein Negative Urine Glucose (UA) Negative Urine Ketones Negative Urine Blood 2+ H Urine Nitrite Negative Urine Bilirubin Negative Urine Urobilinogen Negative Ur Leukocyte Esterase Negative Urine WBC (Auto) 1 Urine RBC (Auto) 7 Hyaline Casts 1 Urine Mucus RPR Titer Labs reviewed: microscopic hematuria (instructed to follow up with PCP within 1- 2 weeks), encouraged PO water intake - Treatment Hospital Course: Detox Protocol Followed, Detoxed Safely, Responded well, Discharged Condition Good - Medication Discharge Medications: Ambulatory Orders Albuterol Sulfate Inhaler - [Ventolin Hfa Inhaler -] 2 inh PO Q4H PRN 01/03/18 Enalapril Maleate [Vasotec] 20 mg PO DAILY 01/03/18 Metformin HCl [Glucophage] 500 mg PO BID 01/03/18 traZODone HCL [Trazodone HCl] 50 mg PO HS #30 tablet 01/07/18 Enalapril Maleate [Vasotec] 20 mg PO DAILY #30 tablet 01/08/18 - Diagnosis (1) Depression Status: Chronic (2) Nicotine dependence Status: Acute (3) Alcohol dependence with uncomplicated withdrawal Status: Acute (4) Asthma Status: Chronic Qualifiers: Asthma severity: mild Asthma persistence: intermittent Asthma complication type: with acute exacerbation Qualified Code(s): J45.21 - Mild intermittent asthma with (acute) exacerbation (5) Opioid dependence with withdrawal Status: Acute (6) Cocaine dependence, uncomplicated Status: Chronic (7) Diabetes Status: Chronic Qualifiers: Diabetes mellitus type: type 2 Diabetes mellitus ferry terminal agent insulin use: without ferry terminal agent use Diabetes mellitus complication status: with unspecified complications Qualified Code(s): E11.8 - Type 2 diabetes mellitus with unspecified complications (8) Essential (primary) hypertension Status: Chronic (9) Obesity (BMI 30-39.9) Status: Chronic (10) Abnormal finding on urinalysis Status: Acute (11) Microscopic hematuria Status: Acute - AMA Did Patient Leave Against Medical Advice: No (F/U with your PCP within 1-2 weeks )
== END 2018-01-08 09:30 | disposition home or self-care (01) | DRG 773 ==
LOC: YASAS 13:51 → Y3N 17:44
PROC: HZ2ZZZZ Detoxification Services for Substance Abuse Treatment (ICD-10-PCS; principal; 2018-01-03)
DX: F11.23 Opioid dependence with withdrawal (principal); F10.230 Alcohol dependence with withdrawal, uncomplicated; F14.20 Cocaine dependence, uncomplicated; F17.210 Nicotine dependence, cigarettes, uncomplicated; F32.9 Major depressive disorder, single episode, unspecified; G47.00 Insomnia, unspecified; I10 Essential (primary) hypertension; J45.21 Mild intermittent asthma with (acute) exacerbation; E11.8 Type 2 diabetes mellitus with unspecified complications; Z79.84 Long term (current) use of oral hypoglycemic drugs; R31.29 Other microscopic hematuria; R82.90 Unspecified abnormal findings in urine; E66.9 Obesity, unspecified; Z68.31 Body mass index [BMI] 31.0-31.9, adult
CPT/HCPCS: 36415; 80053; 81003; 81015; 82962; 85027; 86593; J0735